=== PATIENT | female | born 1975 | race Caucasian/White ===

== ENCOUNTER 2018-03-10 10:50 | Emergency (ER) | payer OTHER ==
--- NOTE | 2018-03-10 11:08 | EDPHY ---
H & P Stated Complaint: Dizziness/2wks Time Seen by Provider: 03/10/18 11:08 HPI/ROS: CHIEF COMPLAINT: Positional orthostasis HISTORY OF PRESENT ILLNESS: The patient presents the ED after she has experienced symptoms of positional orthostasis over the past several weeks. The patient does have a history of bariatric surgery and has had approximately 100 lb weight loss this past year. The patient denies any fever, cough or congestion. She denies pleuritic chest pain. She denies significant abdominal pain, vomiting or diarrhea. She denies any recent medication changes. She does have a history of hypothyroidism and is on Synthroid for this condition. The patient denies any history of recent fall or trauma. She has no history of cardiac or pulmonary disease. She did feel as if her symptoms may have been secondary to dehydration. REVIEW OF SYSTEMS: A comprehensive 10 point review of systems is otherwise negative aside from elements mentioned in the history of present illness. Source: Patient - Personal History LMP (Females 10-55): Over 28 Days Ago Current Tetanus/Diphtheria Vaccine: Yes - Medical/Surgical History Hx Asthma: No Hx Chronic Respiratory Disease: No Hx Diabetes: No Hx Cardiac Disease: No Hx Renal Disease: No Hx Cirrhosis: No Hx Alcoholism: No Other PMH: bariatric surgery - Social History Smoking Status: Never smoked - Physical Exam Exam: General Appearance: Alert, no distress Eyes: Pupils equal and round no pallor or injection ENT, Mouth: Mucous membranes moist Respiratory: There are no retractions, lungs are clear to auscultation Cardiovascular: Regular rate and rhythm Gastrointestinal: Abdomen is soft and nontender, no masses, bowel sounds normal Neurological: A&O, normal motor function, normal sensory exam, normal cranial nerves Skin: Warm and dry, no rashes Musculoskeletal: Neck is supple nontender Extremities: symmetrical, full range of motion Psychiatric: Patient is oriented X 3, there is no agitation Constitutional: Initial Vital Signs Temperature (C) 36.7 C 03/10/18 11:02 Heart Rate 69 03/10/18 11:02 Respiratory Rate 18 03/10/18 11:02 Blood Pressure 108/73 03/10/18 11:02 O2 Sat (%) 95 03/10/18 11:02 Allergies/Adverse Reactions: No Known Allergies Allergy (Unverified 03/10/18 11:06) Home Medications: Medication Instructions Recorded Citalopram 03/10/18 Depo-Estradiol 03/10/18 Levothyroxine 03/10/18 busPIRone 03/10/18 Medical Decision Making - Diagnostics EKG Interpretation: EKG: Complete interpretation has been separately recorded in the [facility] [employer] archive. Summary impression: Sinus rhythm, rate 65 ED Course/Re-evaluation: Differential diagnosis considered includes vasovagal episode, dehydration, metabolic abnormality, arrhythmia, anemia, hypothyroidism ED course: The patient had an IV established. She received a L of normal saline. I reviewed the patient's past medical records. Her initial EKG demonstrates a sinus rhythm without ectopy. She is hemodynamically stable. Her neurologic examination is normal. Patient's laboratory testing including troponin, CBC, metabolic panel and T3 level are within normal limits. I re-evaluated the patient at 12:30 p.m.. I find her to be neurologically intact with no acute complaints. At this point time I favor likely vasovagal explanation for her symptoms. I have encouraged her to increase her fluid intake as slight dehydration likely contributed to her symptoms today. The patient will be advised to return to the emergency department for any severe headache, markedly worsening neurologic symptoms or other concerns. Differential Diagnosis: Differential diagnosis considered includes vasovagal episode, hypothyroidism, dehydration, metabolic abnormality, arrhythmia, anemia - Data Points Laboratory Results: Laboratory Results 03/10/18 11:54 03/10/18 11:54 03/10/18 03/10/18 11:54 11:54 WBC 8.34 10^3/uL 10^3/uL (3.80-9.50) RBC 4.25 10^6/uL 10^6/uL (4.18-5.33) Hgb 14.1 g/dL g/dL (12.6-16.3) Hct 41.5 % % (38.0-47.0) MCV 97.6 fL fL (81.5-99.8) MCH 33.2 pg pg (27.9-34.1) MCHC 34.0 g/dL g/dL (32.4-36.7) RDW 13.0 % % (11.5-15.2) Plt Count 212 10^3/uL 10^3/uL (150-400) MPV 9.9 fL fL (8.7-11.7) Neut % (Auto) 58.7 % % (39.3-74.2) Lymph % (Auto) 34.4 % % (15.0-45.0) Pike % (Auto) 5.2 % % (4.5-13.0) Eos % (Auto) 1.1 % % (0.6-7.6) Baso % (Auto) 0.4 % % (0.3-1.7) Nucleat RBC Rel Count 0.0 % % (0.0-0.2) Absolute Neuts (auto) 4.90 10^3/uL 10^3/uL (1.70-6.50) Absolute Lymphs (auto) 2.87 10^3/uL 10^3/uL (1.00-3.00) Absolute Monos (auto) 0.43 10^3/uL 10^3/uL (0.30-0.80) Absolute Eos (auto) 0.09 10^3/uL 10^3/uL (0.03-0.40) Absolute Basos (auto) 0.03 10^3/uL 10^3/uL (0.02-0.10) Absolute Nucleated RBC 0.00 10^3/uL 10^3/uL (0-0.01) Immature Gran % 0.2 % % (0.0-1.1) Immature Gran # 0.02 10^3/uL 10^3/uL (0.00-0.10) Sodium 141 mEq/L mEq/L (135-145) Potassium 4.4 mEq/L mEq/L (3.3-5.0) Chloride 103 mEq/L mEq/L (97-110) Carbon Dioxide 28 mEq/l mEq/l (22-31) Anion Gap 10 mEq/L mEq/L (6-14) BUN 12 mg/dL mg/dL (7-23) Creatinine 0.7 mg/dL mg/dL (0.6-1.0) Estimated GFR > 60 Glucose 82 mg/dL mg/dL (70-100) Calcium 10.2 mg/dL mg/dL (8.5-10.4) Troponin I < 0.012 ng/mL ng/mL (0.000-0.034) Free T3 2.87 pg/mL pg/mL (2.77-5.27) Medications Given: Discontinued Medications Sodium Chloride (Ns) 1,000 mls @ 0 mls/hr IV EDNOW ONE; Wide Open PRN Reason: Protocol Stop: 03/10/18 11:43 Last Admin: 03/10/18 11:42 Dose: 1,000 mls Departure - Departure Disposition: Home, Routine, Self-Care Clinical Impression: Vasovagal near-syncope Condition: Good Instructions: Syncope (ED) Additional Instructions: 1. Please return to the ED for any worsening symptoms or other concerns. 2. Please try and increase your fluid intake as mild dehydration may have contributed to your symptoms today. 3. Please follow up with the labor expediter, Dr. Pradeep Noel, you have been referred to for any ongoing mild symptoms. 4. The testing done in the emergency department today demonstrates no significant abnormality. Referrals: [facility] ACOSTA [Other] - As per Instructions Pradeep Noel MD [Medical Doctor] - As per Instructions
--- NOTE | 2018-03-10 11:35 | CPEKG ---
Test Reason : OPEN Blood Pressure : / mmHG Vent. Rate : 065 BPM Atrial Rate : 064 BPM P-R Int : 128 ms QRS Dur : 069 ms QT Int : 410 ms P-R-T Axes : -03 078 060 degrees QTc Int : 427 ms Sinus rhythm Confirmed by Varinder Briscoe ([id number]) on 03/10/2018 11:35:21 AM Referred By: Confirmed By:Varinder Briscoe
[2018-03-10] MEDS ORDERED: NS 1,000 ML IV ONE (11:42)
[2018-03-10 12:00] LABS: PLATELET COUNT 212 10^3/uL (150-400)
[2018-03-10 12:40] VITALS: BP 104/67
== END 2018-03-10 12:38 | disposition home or self-care (01) ==
DX: R55 Syncope and collapse (principal); E86.9 Volume depletion, unspecified; E03.9 Hypothyroidism, unspecified
CPT/HCPCS: 84481-90